=== PATIENT | male | born 1950 | race Caucasian/White ===

== ENCOUNTER 2024-10-26 07:23 | Outpatient (CLI) | payer MEDICARE, SELFPAY ==
--- OUTSIDE RECORDS SUMMARY | 2024-10-26 07:26 | XMS_ITS | Data Portability ---
Author Organization JASIEL [facility] Address [address] [address] [place] [address] Care Team Providers Care Photovoltaic Panel Installer Name Role Phone MEL WEBSTER Primary Care Provider Assessment Encounter Date Assessment Date Assessment LastModified by Organization Details LastModified Time 12/31/2023 12/31/2023 Mr. Rhodes is 5 5 years old. He has an atypical radiculopathy. He develops dense paresthesia and vandana numbness in the feet when he stands for a while and walks. This has affected his gait and he also describes his legs and feet have felt weak and not feeling when he is up.He also has some low back pain. He has a positive EMG study. He has very severe stenosis at L3-4 greater than L2-3. I think this is likely the cause of his symptoms. He would be a candidate for an L2-3 L3-4 posterior lumbar interbody fusion with hardware revision/removal at L4-[address] scan and [employer] neuronavigation. We could try some physical therapy and an epidural injection but is not having Severe radicular pain I do not know how much that conservative treatments we will add. He is going to go home and think about surgery. We tied a long discussion about indications and risks. We talked about infection, adjacent level problem, hardware failure, neural injury. I told him the risk of a catastrophic complication is low but not 0. He understands there is a risk of a medical complication. He understands to be in the hospital for 2-3 nights on average. He would probably get to go home but There is a chance he have to go to rehab. He is going to talk with his and he will let us know how he wants to proceed. I went ahead and had Dina our oral and maxillofacial surgery resident talk with him in the event that he decides to proceed with surgery. jones Not available 12/31/2023 12:25:56 04/14/2024 04/14/2024 Mr. Steward presents today status post L2-L3 and L3-L4 PLIF with Hardware Revision/Removal at L4-L5 03/30. [place] removed with no issues or concerns. All questions answered. [email or web address] Not available 04/14/2024 11:02:10 05/12/2024 05/12/2024 Mr. Rhodes is doing well after undergoing an L2-3 L3-4 posterior lumbar interbody fusion with L4-5 hardware. Back pain and leg weakness and numbness have improved since surgery. He is not having any leg pain. His x-rays look great. He looks great. He is slowly improving with respect to his postop back pain. His incisions healed nicely and is neurologically intact.I reminded him to still take it relatively easy. He should avoid extreme bending lifting or twisting. I would lift anything more than 25 pounds until he comes back and sees me for the last visit in 2 to 3 months with lumbar x-rays. jones Not available 05/12/2024 14:57:38 08/11/2024 08/11/2024 IMAGING: Lumbar x-rays through [facility] on 08/11/2024. I personally reviewed the images with Dr. Flynn and read the radiologist's report. Hardware satisfactorily in place ASSESSMENT: Cm Steward is a 73-year-old status post L4-5 PLIF (Dr. Flynn, 2015) and most recently an L2-L4 PLIF with hardware removal at L4-5 (03/30/2024) who presents to the clinic for second postop appointment. Patient looks great on exam. His incision has healed nicely. We discussed he may now lift up to 30 pounds and increase by 5 pounds each week as tolerated. Since he is doing well we will release him from a neurosurgical standpoint but he knows to call us if any issues arise in the future. PLAN: Call as needed [email or web address] Not available 08/11/2024 09:52:48 Plan of Treatment Reminders Order Date Submit Date Provider Last Modified By Organization Details Last Modified Time Details Appointments RECHECK 2024 01:45P M ITZEL CORDOVA MD Not available Not available Not available Lab None recorded . Referral None recorded . Procedures None recorded . Surgeries None recorded . Imaging None recorded . Medication Orders None recorded . Patient TargetsNo targets recorded. Patient InstructionsNo instructions recorded. Reason for Referral None Reported. Results Created Date Observation Date Name Description Value Unit Range Abnormal Flag Note LastModifiedBy Organization Detail LastModifiedTime 12/16/19 24 12/16/2023 MRI, lumba r spine , w/wo contr ast [facility] [address] [place] [address] Marcos t Name: ED THAO russo : [address] Marcos t Orderi ng Provid er: ROBBIN JONATHANFREYA Anirudh EXAM DATE: 2023 EXAM: MR LUMBAR SPINE W/WO CONTRA ST HISTOR Y: 73-yea r-old male with chroni c low back pain and bilate ral leg numbne ss. The patien t has had prior lumbar surger y. COMPAR TRAVIS: Radiog raph dated 024 and MRI dated 017. The patien t did not requir e sedati on for this exam. A baseli ne serum creati nine with eGFR was obtain ed prior to inject ion of contra st medium due to the patien ts risk factor s for FERMIN. Calcul ated eGFR at time of exam was GFR 69 FINDIN GS: There is prior discec mark, interb reena graft, yola ctomy and a r specialist ior fusion L4-L5. There is solid osseou s fusion at this level. There is dextro curvat ure of the lower lumbar spine and levocu rvatur e at the thorac olumba r juncti on. There is mild anteri or listhe sis of L4 on L5 and mild a r specialist ior listhe sis of L2 on L3. There is no fractu re. There is mild anteri or margin al osteop hytic spurri ng. No pathol ogic lesion is identi fied in the lumbar spine. There are type II Modic change s at L3-L4. The conus medull radha is normal in appear ance at the L1-L2 level. T11-T1 2 and T12-L1 : These interv ertebr al discs are normal in appear ance. L1-L2: There is mild facet arthro adria, mild endpla te spurri ng and a minima l disc bulge. There is no centra l canal stenos is. There is no neural forami nal stenos is. L2-L3: There is a broad- based disc protru palma and endpla te spurri ng extend ing into the neural forami na, modera te facet arthro adria, ligame ntum flavum hypert rophy and promin ence of the epidur al fat. There is modera te centra l canal stenos is. There is mild/m oderat e left and mild right neural forami nal stenos is. L3-L4: There is a broad- based disc protru palma extend ing into the left neural forame n, modera te endpla te spurri ng, and severe facet arthro adria, ligame ntum flavum hypert rophy and promin ence of the epidur al fat. There is severe centra l canal stenos is. There is severe left and modera te right neural forami nal stenos is. L4-L5: There is prior fusion with residu al endpla te spurri ng and facet arthro adria. There is no centra l canal stenos is. There is modera te/sev ere right and mild left neural forami nal stenos is. L5-S1: There is a broad- based disc protru palma, endpla te spurri ng and modera te facet arthro adria. There is no centra l canal stenos is. There is mild bilate ral neural forami nal stenos is. After intrav enous admini strati on of [address] ([facility] [id number] 2), there is no abnorm al enhanc ement in the lumbar spine. There is mild diffus e atroph y of the parasp inous muscul ature. IMPRES PALMA: 1. There is severe centra l canal stenos is with severe left and modera te right neural forami nal narrow ing at L3-L4. This is more severe than in the prior MRI. 2. There is modera te centra l canal narrow ing and mild to modera te neural forami nal narrow ing at L2-L3. 3. There is prior PLIF at L4-L5. There is modera te/sev ere right neural forami nal narrow ing at this level. Interp reted By: Karla de oliveira MD Electr onical ly Signed By: Karla de oliveira MD on 1:08 PM [email or web address] [facility] Radiology [facility] [address] [place], [address], 12/25/2023 17:10:44 12/17/19 24 12/08/2023 nerve condu ction study /EMG, lower extre mity (PROC ) No observ ation record ed. [facility] Edith Jaffe MD [address] [place], [address], 02/08/2024 10:18:20 05/12/20 24 05/12/2024 XR, lumbo sacra l spine , 2 or 3 view [facility] [address] [place] [address] Marcos russo Name: ED HTAO russo : [address] Marcos russo Orderi ng Provid er: MELY FLYNN EXAM DATE: 2023 EXAM: XR LUMBAR AP/LAT CLINIC AL INFORM ATION: Follow -up of recent multil evel fusion . IMAGES PROVID ED: AP, latera l and coned down views of the lumbar spine. COMPAR TRAVIS: Lumbar spine FINDIN GS AND IMPRES PALMA: The marcos t has had previo us anteri or and a r specialist ior fusion at L4-5 with subseq uent remova l of most of the a r specialist ior hardwa re since the study of . There is now multil evel anteri or and a r specialist ior fusion extend ing from L2 to L4 with interb reena cages and a r specialist ior plates and screws and the alignm ent appear s satisf actory . There has also been yola ctomy at L3. There are mild degene rative change s at the inferi or aspect of both sacroi liac joints unchan ged. Interp reted By: Gita mcgee MD Electr onical ly Signed By: Gita mcgee MD on 2023 1:[address], [address], 06/30/2024 20:26:01 08/12/19 25 08/11/2024 XR, lumbo sacra l spine , 2 or [address] [address] [phone] Patishalom russo Name: ED THAO russo : [address] Marcos russo Orderi ng Provid er: MELY FLYNN EXAM DATE: 2024 EXAM: XR LUMBAR AP/LAT CLINIC AL INFORM ATION: Back pain. IMAGES PROVID ED: AP, latera l and coned down views of the lumbar spine. COMPAR TRAVIS: 2023 FINDIN GS: Previo us fusion proced ure L2-L5. [employer] Superintendent ior rods are presen t L2-L4. Only a right pedicl e screw is presen t involv ing L5. No radiog raphic eviden ce of injury is noted. Interv al. No interv al compli cation . No loosen ing. IMPRES PALMA: Previo us lumbar spine fusion as descri bed. Stable Interp reted By: Christoph Camarillo MD Electr onical ly Signed By: Christoph Camarillo MD on 025 8:[address], [address], 09/29/2024 20:54:00 Result Notes None recorded. Procedures Surgical History Date Name Laterality Status Provider Name and Address Organization Details Recorded Time 12/08/19 24 Electromyography (EMG) with Nerve Conduction Study (NCV) completed Aminta Helton (Nicky) [facility] 12/08/2023 15:44:25 03/12/20 20 EXTRA CORPOREAL SHOCKWAVE LITHOTRIPSY (SURG) completed Lonnie Perry [facility] 03/12/2020 12:17:24 03/12/20 20 CYSTOSCOPY, WITH URETEROSCOPY, WITH LITHOTRIPSY, WITH INSERTION OF URETERAL STENT (SURG) completed Lonnie Perry [facility] 03/12/2020 16:33:42 03/12/20 20 EXTRA CORPOREAL SHOCKWAVE LITHOTRIPSY (SURG) completed Lonnie Perry [facility] 03/19/2020 09:10:18 08/07/19 19 EXTRA CORPOREAL SHOCK WAVE LITHOTRIPSY (SURG) completed Yanely Hien [facility] 08/12/2018 08:40:13 11/05/19 17 Electromyography (EMG) with Nerve Conduction Study (NCV) completed Aminta (Kuldip Helton [facility] 11/04/2016 15:06:59 06/21/19 15 Back Surgery completed Kristin Carlos [facility] 09/25/2016 14:10:01 08/26/19 14 Other completed Kristin Carlos [facility] 09/25/2016 14:10:49 06/01/18 70 Other completed Kristin Carlos [facility] 09/25/2016 14:11:21 Cholecystectomy completed Kristin Carlos [facility] 09/25/2016 14:10:18 Imaging Results None recorded. Procedure Notes None recorded. Medical Equipment None Reported. Allergies No known drug allergies Medications Name Sig Start Date Stop Date Status Note LastModified by Organization Details LastModified Time Flomax 0.4 mg capsule Daily active Duration : 30 days;Timothy quency: daily;Me dication Descript ion: tamsulos in; Dosage:1 ; Route:or al; refills: 0; Quantity :30 capsule Not Available Not Available Not Available Percocet 7.5 mg-325 mg tablet Take 1 tablet every 6 hours by oral route as needed. 2023 active Not Available Not Available Not Avai lable tizanidin e 4 mg tablet Take 1 tablet every 8 hours by oral route as needed. 2016 active Not Available Not Available Not Avai lable Medrol (Joni) 4 mg tablets in a dose pack Take 1 package by oral route. 07/22 completed Not Available Not Available Not Available Huma-C tablet Daily active Frequenc y: daily;Me dication Descript ion: ascorbic acid; Route:or al; refills: 0 Not Available Not Available Not Available Percocet 5 mg-325 mg tablet Take 1 tablet every 8 hours by oral route as needed. 2023 active Not Available Not Available Not Avai lable Celexa 40 mg tablet Daily active Frequenc y: daily;Me dication Descript ion: citalopr am; Dosage:1 ; Route:or al; refills: 0 Not Available Not Available Not Available finasteri de 5 mg tablet Take 1 tablet every day by oral route for 90 days. 2023 active Not Available Not Available Not Avai lable naproxen 500 mg tablet Two times a day active Frequenc y: bid;Medi cation Descript ion: naproxen ; Dosage:1 ; Route:or al; refills: 0 Not Available Not Available Not Available alfuzosin ER 10 mg tablet,ex tended release 24 hr Take 1 tablet every day by oral route for 90 days. 2023 active Not Available Not Available Not Avai lable Vytorin 10 mg-20 mg tablet Daily active Frequenc y: daily;Me dication Descript ion: ezetimib e-simvas tatin; Route:or al; refills: 0 Not Available Not Available Not Available gabapenti n 300 mg tablet Two times a day active Frequenc y: bid;Medi cation Descript ion: gabapent in; Route:or al; refills: 0 Not Available Not Available Not Available Tricor 145 mg tablet Daily active Frequenc y: daily;Me dication Descript ion: fenofibr ate; Dosage:1 ; Route:or al; refills: 0 Not Available Not Available Not Available Fish Oil Two times a day active Frequenc y: bid;Medi cation Descript ion: omega-3 polyunsa turated fatty acids; Route:or al; refills: 0 Not Available Not Available Not Available Vitamin D active Medicati on Descript ion: ergocalc iferol; Route:or al; refills: 0 Not Available Not Available Not Available Nuvigil 150 mg tablet Daily active Frequenc y: daily;Me dication Descript ion: armodafi nil; Route:or al; refills: 0 Not Available Not Available Not Available Vitals Date Recorded Body height Body mass index (BMI) Body weight Systolic blood pressure Diastolic blood pressure Provider Name and Address Organization Details Last Updated DateTime 08/11/2024 170.18 cm 42 kg/m2 842466. 76 g 122 mm[Hg] 74 mm[Hg] [facility] 5 09:21:22 Date Recorded Body height Body mass index (BMI) Body weight Systolic blood pressure Diastolic blood pressure Provider Name and Address Organization Details Last Updated DateTime 12/31/2023 170.18 cm 42 kg/m2 692845. 76 g 131 mm[Hg] 84 mm[Hg] [facility] 4 09:42:20 Date Recorded Body height Body mass index (BMI) Body weight Systolic blood pressure Diastolic blood pressure Provider Name and Address Organization Details Last Updated DateTime 05/12/2024 170.18 cm 42 kg/m2 699152. 76 g 124 mm[Hg] 78 mm[Hg] [facility] 4 14:41:47 Social History Question Answer Notes LastModified by Organizat ion Details LastModified Time Tobacco Smoking Status Former Smoker Kavitha Pratibha [facility] 03/03/2024 13:29:40 How Much Tobacco Do You Chew? None Information not available 11/18/2018 When Did You Quit Smoking? 1-5yearssinc elastcigaret te Information not available 03/03/2024 Marital Status buddy Informatio n not available 07/22/2018 What Was The Date Of Your Most Recent Tobacco Screening? 11/12/2023 Information not available 11/12/2023 How Much Tobacco Do You Smoke? No Information not available 03/03/2024 Has Tobacco Cessation Counseling Been Provided? Yes Information not available 11/18/2018 On What Date Was Tobacco Cessation Counseling Provided? 11/18/2018 Information not available 11/18/2018 How Many Years Have You Smoked Tobacco? 53 Information not available 03/03/2024 Sex: Unknown Functional Status None recorded. Mental Status None recorded. Family History Relationship Description Onset Age of this Age Resolved Age Notes LastModified by Organization Details LastModified Time Unspecified Relation Alcoholism apurdie Not available 2016 14:05:46 Unspecified Relation Blood coagulation disorder apurdie Not available 2016 14:05:59 Unspecified Relation Heart disease apurdie Not available 2016 14:06:09 Unspecified Relation Arthritis apurdie Not available 017 14:06:17 Unspecified Relation Hypertensive disorder apurdie Not available 2016 14:07:04 Unspecified Relation Osteoporosis apurdie Not available 08/31 14:07:16 Unspecified Relation Kidney disease apurdie Not available 2016 14:07:28 Medical History Condition Response Other Arthritis Y Sleep Apnea Y High Cholesterol Y Past Encounters Encounter ID Performer Location Encounter Start Date Encounter Closed Date Diagnosis/Indication Diagnosis SNOMED-CT Code Diagnosis ICD10 Code Diagnosis Note [id number] JOSE MARTINEZ PA-C [facility] [address] [place] [address] 09/25/2016 13:17:10 09/30/2016 14:13:30 Lumbar radiculopathy 737378183 M54.16 [id number] PATRICIA FLANNERY MD NEUROLOGY [facility] [address] [place] [address] 11/04/2016 13:43:11 11/04/2016 16:54:09 Lumbar radiculopathy 790037604 M54.16 [id number] MELY FLYNN MD NEUROSURG [facility] [address] [place] [address] 11/04/2016 15:29:53 11/04/2016 16:26:02 Lumbar spondylosis 904265744 M47.741 [id number] ITZEL CORDOVA MD [facility] [address] [address] 07/22/2018 15:35:02 08/02/2018 09:50:00 Urinary bladder stone 19868837 N21.0 Kidney stone 09466439 N2 0.0 [id number] ITZEL CORDOVA MD [facility] [address] [address] 08/12/2018 13:32:56 08/23/2018 09:25:17 Urolithiasis 16063324 N20.9 [id number] ITZEL CORDOVA MD [facility] [address] [place] [address] 8 11/18/2018 14:51:52 11/19/2018 10:17:09 Kidney stone 57286867 N20.0 [id number] ITZEL CORDOVA MD [facility] [address] [place] [address] 8 05/05/2019 14:56:07 05/31/2019 10:36:40 Kidney stone 09005114 N20.0 [id number] ITZEL CORDOVA MD [facility] [address] [place] [address] 8 02/02/2020 14:19:23 02/07/2020 09:36:50 Kidney stone 27952554 N20.0 [id number] ITZEL CORDOVA MD [facility] [address] [facility] [facility] [place], [place] [address] 03/19/2020 15:26:10 03/19/2020 17:10:44 Kidney stone 87584593 N20.0 [id number] ITZEL CORDOVA MD [facility] [address] [place] [address] 8 06/28/2020 14:40:43 06/29/2020 15:11:47 Benign prostatic hyperplasia with outflow obstruction 577057804 N40.1 Kidney stone 19933852 N2 0.0 [id number] ITZEL CORDOVA MD [facility] [address] [place] [address] 8 10/04/2020 14:32:02 10/10/2020 13:50:43 Benign prostatic hyperplasia with outflow obstruction 359875956 N40.1 Urgent sridevi adam to urinate 41519754 R39.15 Kidney stone 80025726 N2 0.0 [id number] ITZEL CORDOVA MD [facility] [address] [place] [address] 8 10/30/2022 13:37:12 11/01/2022 04:09:28 Benign prostatic hyperplasia with outflow obstruction 862499464 N40.1 Urgent sridevi adam to urinate 52835025 R39.15 Kidney stone 76106336 N2 0.0 History of calculus of kidney 294812713 Z87.442 [id number] ITZEL CORDOVA MD [facility] [address] [address] 11/12/2023 15:25:40 11/12/2023 17:48:55 Benign prostatic hyperplasia with outflow obstruction 355869806 N40.1 Kidney stone 58605767 N2 0.0 [id number] ROBBIN UBLLARD APRN NEUROSURG [facility] [address] [place] [address] 0 11/17/2023 09:26:10 11/18/2023 04:21:32 Lumbar radiculopathy 412327618 M54.16 Lumbar spondylosis 57587 0009 M47.896 History of lumbar fusion 6966488757 9106 Z98.1 [id number] [place] [address] [place] [address] 1 12/08/2023 14:01:32 2023 13:04:36 Lumbar radiculopathy 251103059 M54.16 Paresthesia 57908275 R20 .2 Skin sensa tion disturbance 37370735 R20.9 [id number] MELY FLYNN MD NEUROSURG [facility] [address] [place] [address] 0 12/31/2023 09:19:04 01/01/2024 04:13:01 Spinal stenosis of lumbar region 88159796 M48.062 [id number] MELY FLYNN MD SURGERY SCHEDULE [address] [place] [address] 1 03/31/2024 13:39:16 04/07/2024 14:37:46 [id number] MELY FLYNN [facility] [address] [place] [address] 0 04/14/2024 09:36:45 04/16/2024 04:41:46 [id number] MELY FLYNN MD NEUROSURG [facility] [address] [place] [address] 0 05/12/2024 14:07:16 05/13/2024 04:25:30 Spinal stenosis of lumbar region 89811462 M48.062 [id number] NIDHI LEROY PA-C [facility] [address] [place] [address] 08/11/2024 09:12:18 08/16/2024 14:21:50 Health Concerns Section Related Observation LastModified by Organization Detai ls LastModified Time None Recorded Concern Status LastModified by Organization Details LastModified Time None Recorded Advance Directives Directive None Recorded Payers Insurance Date Sequence Insurance Name Policy Number Policy Hussein Covered Member ID Hussein Member ID Guarantor Name 08/16/2024 1 [employer] (MEDICARE REPLACEMENT/A DVANTAGE - PPO) Ed Thao [id number] Ed Thao Notes Date Note Type Note Provider Name and Address Organization Details Recorded Time 4 text/html I saw Mr. Rhodes. In June 2014 I performed an L4-5 posterior lumbar interbody fusion for spondylolisthesis and stenosis. He did very well. He was seen by nurse Jose Rafael on November 17, 2023. He has been getting dense paresthesias and numbness in the feet when he stands and walks. He gets relief after a minute or so when he Sits down. He has some low back pain in the low lumbar area when he switches from sitting to standing. Dr. Jaffe recently performed an EMG study that showed L5 plus S1 radiculopathies and possibly chronic left L3 or L4 radiculopathy. He had no neuropathy.Symptoms have progressed to the point where he is having trouble walking because he cannot feel his feet when he is walking and starts to develop symptoms. He also feels like his legs are weak.Nurse pooja upton ordered flexion-extension x-rays a lumbar MRI scan and an EMG study. MELY FLYNN MD [facility] [place], [address], [facility] 12/31/2023 12:26:43 4 text/html Follow-up status post L2-3 L3-4 posterior lumbar interbody fusion with hardware removal at L4-5 on March 30, 2024. I performed the L4-5 fusion back in 2014. Back pain but a lot of leg weakness and numbness prior to surgery. He states that since surgery has not really had any left lower extremity pain at all. Numbness in the feet is also improved. He feels like his legs are little stronger. He has some back soreness which is not too bad. It slowly getting better. He reports no room problems. He overall feels like surgery helped quite a bit and is happy with how he is doing MELY FLYNN MD [address] [place], [address], [facility] 05/12/2024 14:58:09 text/html Cm Steward is a 73-year-old status post L4-5 PLIF (Dr. Flynn, 2015) and most recently an L2-L4 PLIF with hardware removal at L4-5 (03/30/2024) who presents to the clinic for second postop appointment, with lumbar x-rays through [facility] on 08/11/2024. Patient states his left lower extremity pain has entirely resolved since surgery. He reports lower back stiffness in the morning that resolves once he starts moving. He has no concerns for today's visit. He is overall happy that he had the procedure. PA and physician visit. NIDHI LEROY PA-C [address] [place], [address], [facility] 08/11/2024 09:53:08
--- OUTSIDE RECORDS SUMMARY | 2024-10-26 07:26 | XMS_ITS | Data Portability ---
Author Organization [facility] Juan [facility] JANICE Isabel ADMIN Address [address] [place] [id number] Care Team Providers Care Skin Care Instructor Name Role Phone DARIN JUAN PABLO Primary Care Provider Assessment No assessment recorded. Plan of Treatment Reminders Order Date Submit Date Provider Last Modified By Organization Details Last Modified Time Details Appointments None recorded. Lab None recorded. Referral None recorded. Procedures None recorded. Surgeries None recorded. Imaging LDCT, chest, for lung cancer screening - 1- Did patient participate in a shared decision-wilver tovar session with the provider? YES2- Is patient age between 50-77 years old? YES3- Did patient smoke at least 20 pack year? YES4- Is patient current smoker or quit smoking within the last 15 years? YES5- Is the patient asymptomati c (no signs or symptoms of lung cancer)? YES 2022 024 [email or web address] [facility] (Scheduling[facility] [address] [place], [address], 4 14:53:09 LDCT, chest, for lung cancer screening - 1- Did patient participate in a shared decision-wilver tovar session with the provider? YES2- Is patient age between 50-77 years old? YES3- Did patient smoke at least 20 pack year? YES4- Is patient current smoker or quit smoking within the last 15 years? YES5- Is the patient asymptomati c (no signs or symptoms of lung cancer)? YES 2022 023 [email or web address] [facility] ([facility]), [address] [place], [address], 3 13:46:02 PFT, plethysmogr aphy 2022 023 [facility] (Scheduling), [address] [place], [address], 3 17:36:52 Medication Orders Ventolin HFA 90 mcg/actuati on aerosol inhaler 2022 023 [facility], [address] [place] [address], [address], 3 11:39:09 Stiolto Respimat 2.5 mcg-2.5 mcg/actuati on solution for inhalation 2022 023 [facility], [address] [place], [address], 3 11:39:11 Patient TargetsNo targets recorded. Patient InstructionsNo instructions recorded. Reason for Referral None Reported. Results Created Date Observation Date Name Description Value Unit Range Abnormal Flag Note LastModifiedBy Organization Detail LastModifiedTime 10/18/1910/14/2022 PFT, pleth ysmog radha No observ ation record ed. [facility] (Scheduling) [address] [place], [address], 10/20/2022 10:30:51 Result Notes None recorded. Problems Name Problem SNOMED Code Status Onset Date Resolution Date Notes Provider Name and Address Organization Details Recorded Time Chronic obstructive pulmonary disease 21493961 Active [address], [place], [address] , [facility] & [place] 3 11:35:51 Dyspnea on exertion 63365638 Active [address], [place], [address] , [facility] & [place] 3 11:36:14 Nicotine dependence in remission 290746972 Active [address], [place], [address] , [facility] [place] & [place] 3 11:36:22 Tobacco dependence in remission 414467685 Active 2022 Dilcia Romano MD [address], [place], [address] , [facility] & [place] 3 11:41:31 Obstructive sleep apnea syndrome 75551124 Active 2022 Dilcia Romano MD [address], [place], [address] , [facility] & [place] 3 11:46:11 Problem Notes None recorded. Procedures Surgical History Date Name Laterality Status Provider Name and Address Organization Details Recorded Time 06/01/19 21 Joint Replacement completed Andrew Lerma [facility] & [place] 12/09/2022 10:58:22 06/01/19 18 Back Surgery completed Andrew Lerma [facility] & [place] 12/09/2022 10:58:22 06/01/19 15 operative procedure on spinal structure completed Rashad Wing [facility] & [place] 10/07/2022 10:51:36 06/01/19 00 LASIK completed Andrew Gabarrett [facility] & [place] 12/09/2022 10:58:22 total knee replacement completed Rashad Morales [facility] & [place] 10/07/2022 10:51:16 Other completed Andrew Lerma [facility] & [place] 12/09/2022 10:58:22 Imaging Results None recorded. Procedure Notes None recorded. Medical Equipment None Reported. Allergies No known drug allergies Medications Name Sig Start Date Stop Date Status Note LastModified by Organization Details LastModified Time atorvastatin 20 mg tablet TAKE 1 TABLET BY MOUTH ONCE DAILY FOR CHOLESTEROL active Not Available Not Available Not Available citalopram 40 mg tablet TAKE 1 TABLET BY MOUTH ONCE DAILY IN THE MORNING active Not Available Not Available Not Available omeprazole 20 mg capsule,carolyn yed release TAKE 1 CAPSULE BY MOUTH ONCE DAILY active Not Available Not Available No t Available atropine 1 % eye drops active Not Available Not Available No t Available finasteride 5 mg tablet TAKE 1 TABLET BY MOUTH ONCE DAILY FOR 90 DAYS active Not Available Not Available No t Available Ventolin HFA 90 mcg/actuatio n aerosol inhaler INHALE 2 PUFFS BY MOUTH EVERY 4 HOURS active Not Available Not Available No t Available alfuzosin ER 10 mg tablet,exten ded release 24 hr TAKE 1 TABLET BY MOUTH ONCE DAILY FOR 90 DAYS active Not Available Not Available No t Available fenofibrate 160 mg tablet TAKE 1 TABLET BY MOUTH ONCE DAILY active Not Available Not Available No t Available pregabalin 200 mg capsule TAKE 1 CAPSULE BY MOUTH TWICE DAILY active Not Available Not Available No t Available Stiolto Respimat 2.5 mcg-2.5 mcg/actuatio n solution for inhalation INHALE 2 PUFFS BY MOUTH ONCE DAILY active Not Available Not Available No t Available Trelegy Ellipta 100 mcg-62.5 mcg-25 mcg powder for inhalation Inhale 1 puff by mouth once daily active Not Available Not Available No t Available Vitals Date Recorded Body weight Body mass index (BMI) Body height Body temperature Oxygen saturation Oxygen saturation in Arterial blood by Pulse oximetry Respiratory rate Heart rate Systolic blood pressure Diastolic blood pressure Provider Name and Address Organization Details Last Updated DateTime 3 404721. 01 g 45 kg/m2 170.18 cm 98.4 [degF] 97 % 97 % 18 /min 72 /min 146 mm[Hg] 95 mm[Hg] Rashad CAMACH[facility] & [place] 3 10:53:18 Date Recorded Body height Body mass index (BMI) Body weight Body temperature Oxygen saturation Oxygen saturation in Arterial blood by Pulse oximetry Heart rate Systolic blood pressure Diastolic blood pressure Provider Name and Address Organization Details Last Updated DateTime 3 170.18 cm 45 kg/m2 375953. 81 g 98.2 [degF] 96 % 96 % 71 /min 149 mm[Hg] 86 mm[Hg] Andrew CAMACH[facility] & [place] 3 10:58:00 Social History Question Answer Notes LastModified by Organizat ion Details LastModified Time Tobacco Smoking Status Former Smoker Rashad [facility] Hager [facility] & [place] 10/07/2022 10:51:01 What Is Your Level Of Caffeine Consumption? Occasional [email or web address] Information not available 12/09/2022 When Did You Quit Smoking? 1-5yearskya del castillo [email or web address] Information not available 12/09/2022 What Was The Date Of Your Most Recent Tobacco Screening? 12/09/2022 [email or web address] Information not available 12/09/2022 What Is Your Current Pack Years? 20-29packyears [email or web address] Information not available 12/09/2022 At What Age Did You Start Smoking Tobacco? 18 [email or web address] Information not available 12/09/2022 Sex: Unknown Functional Status Question Answer Note LastModified by Organizat ion Details LastModified Time Do you use any illicit or recreational drugs? No Information not available 10/07/2022 What is your level of alcohol consumption? None Information not available 10/07/2022 Mental Status None recorded. Family History Relationship Description Onset Age of this Age Resolved Age Notes LastModified by Organization Details LastModified Time Father Hypertensive disorder [email or web address] Not available 2022 10:49:56 Father Chronic obstructive pulmonary disease [email or web address] Not available 2022 10:50:02 Mother Hypertensive disorder [email or web address] Not available 2022 10:49:56 Medical History Condition Response Obesity Y Arthritis Y Ear or Hearing Problems Y Spine Problems Y Back Problems Y Obstructive Sleep Apnea Y COPD Y Past Encounters Encounter ID Performer Location Encounter Start Date Encounter Closed Date Diagnosis/Indication Diagnosis SNOMED-CT Code Diagnosis ICD10 Code Diagnosis Note [id number] Dilcia Romano MD [facility] [address] [facility] [place] [address] 10/07/2022 10:40:13 10/07/2022 11:27:02 Chronic obstructive pulmonary disease 67655185 J44.9 Images and report of chest x-ray done recently were reviewed and discussed with the patient, there is no evidence of acute finding. Spirometry done in the office today showed poor effort with evidence of obstructio n and decrease in FEV1 down to 48% predicted and that was reviewed and discussed with the patient. Given patient's symptoms and spirometry abnormalit y then will check full PFTs with DLCO. Will check alpha-1 trypsin genotype by buccal mucosal swab in the office today. Will start patient on a controller inhaler using Stiolto. Patient instructed to call if there is any new symptoms. Dyspnea on exertion 6084 5006 R06.09 Patient recommende d to exercise as tolerated and use his Yoana on a p.r.n. basis. Screening for malignant neoplasm of respiratory tract 010736858 Z12.2 The patient has participat ed in a shared decision making session during which potential risk and benefits of LDCT lung cancer screening were discussed. The patient was informed of the importance of adherence to annual screening, impact of comorbidit ies, the ability/wi llingness to undergo diagnosis and treatment. The patient was informed of the importance of smoking cessation and/or maintainin g smoking abstinence , including the offer of Medicare-c over tobacco cessation counseling services, if applicable . The patient is asymptomat ic (no symptoms such as fever, chest pain, new shortness of breath, new or changing cough, coughing up blood, or unexplaine d significan t weight loss). Tobacco de pendence in remission 287471096 F17.211 Patient quit smoking about a year and a half ago and will continue follow this up.The patient has participat ed in a shared decision making session during which potential risk and benefits of LDCT lung cancer screening were discussed. The patient was informed of the importance of adherence to annual screening, impact of comorbidit ies, the ability/wi llingness to undergo diagnosis and treatment. The patient was informed of the importance of smoking cessation and/or maintainin g smoking abstinence , including the offer of Medicare-c over tobacco cessation counseling services, if applicable .The patient is asymptomat ic (no symptoms such as fever, chest pain, new shortness of breath, new or changing cough, coughing up blood, or unexplaine d significan t weight loss). [id number] Dilcia Romano MD [facility] [address] [facility] [place] [address] 12/09/2022 10:51:32 12/09/2022 11:11:32 Chronic obstructive pulmonary disease 72006327 J44.9 PFT with DLCO done recently results were reviewed and discussed with the patient, there is restrictiv e effect due to patient body habitus with decrease in FEV1 down to 93% predicted. Patient instructed to continue with the use of Stiolto regularly and will consider deescalati ng treatment if there is any side effects or improvemen t in his condition by next visit.Amanda ent instructed to call if there is any new symptoms. Dyspnea on exertion 6084 5006 R06.09 Patient recommende d to exercise as tolerated and use his Yoana on a p.r.n. basis. Screening for malignant neoplasm of respiratory tract 072235104 Z12.2 Images and report of low-dose CT of the chest done recently at [facility] were reviewed and discussed with the patient, there is no evidence of malignancy and will continue with annual testing. The patient has participat ed in a shared decision making session during which potential risk and benefits of LDCT lung cancer screening were discussed. The patient was informed of the importance of adherence to annual screening, impact of comorbidit ies, the ability/wi llingness to undergo diagnosis and treatment. The patient was informed of the importance of smoking cessation and/or maintainin g smoking abstinence , including the offer of Medicare-c over tobacco cessation counseling services, if applicable .The patient is asymptomat ic (no symptoms such as fever, chest pain, new shortness of breath, new or changing cough, coughing up blood, or unexplaine d significan t weight loss). Tobacco de pendence in remission 408420668 F17.211 Patient remains without smoking and will continue follow this up. Obstructiv e sleep apnea syndrome 01313308 G47.33 Patient instructed to continue with the use of his CPAP regularly and to comply with the cleaning instructio ns and supply changes. Health Concerns Section Related Observation LastModified by Organization Detai ls LastModified Time None Recorded Concern Status LastModified by Organization Details LastModified Time None Recorded Advance Directives Directive None Recorded Payers Insurance Date Sequence Insurance Name Policy Number Policy Hussein Covered Member ID Hussein Member ID Guarantor Name 12/19/2023 1 [employer] (MEDICARE REPLACEMENT/A DVANTAGE - PPO) Cm Steward [id number] Cm Steward Notes Date Note Type Note Provider Name and Address Organization Details Recorded Time 10/07/2022 text/html Patient presents to the office today for initial evaluation. Patient states that over the last couple years he noticed worsening dyspnea on exertion despite having bilateral knee pain that is limiting his activity. He denies significant shortness breath at rest. He denies fever, chills or diaphoresis. No chest pain, angina or palpitation. No PND or orthopnea. Patient denies wheezing or hemoptysis. Patient states that he had history of smoking more than 1 pack per day for more than 50 years and quit about a year and half ago. Patient denies significant change in his appetite but had increase in his weight about 30 lb last couple years. Dilcia Romano MD [address], [place], [address], [facility] & [place] 10/07/2022 11:43:28 12/09/2022 text/html Patient presents to the office today for follow-up visit. Patient states that he is doing fairly well with good control of his shortness of breath at rest and dyspnea on exertion. He is trying to exercise regularly. Using his Stiolto daily and did not had to use his Yoana for few weeks. He denies fever, chills or diaphoresis. No chest pain, angina or palpitation. No PND or orthopnea. Patient denies wheezing or hemoptysis. Patient denies significant change in his weight or appetite. Dilcia Romano MD [address], [place], [address], [facility] & [place] 12/09/2022 11:46:50
--- NOTE | 2024-10-26 07:30 | CT_ITS ---
FINAL REPORT TECHNIQUE: Axial CT images of the chest were obtained without contrast. Coronal and sagittal reformatted images were obtained and reviewed. Low-dose protocol was utilized. This study was performed with techniques to keep radiation doses as low as reasonably achievable (ALARA). Individualized dose reduction techniques using automated exposure control or adjustment of mA and/or kV according to the patient's size were employed. CLINICAL HISTORY: Lung cancer screening Former smoker quit 4 years ago, 1ppd x50 years. COPD COMPARISON: None FINDINGS: CT CHEST WITHOUT, LOW DOSE SCREENING CTDl vol(mGy): 2.90 DLP (mGy-cm): 111.77 There is no axillary adenopathy. There is no mediastinal adenopathy. There is a calcified left hilar lymph node. The heart size is normal. There is no pericardial or pleural effusion. Lung window images demonstrate calcified granuloma in the left lower lobe. Linear scarring is identified at the medial right lung base. There are mild changes of centrilobular emphysema in both upper lobes. There is a pleural-based nodule in the periphery of the left lung base. This measures 5 mm and is seen on image 39 of series 604. Limited images of the upper abdomen are unremarkable. IMPRESSION: Lung RADS category 2. Recommend 12 month follow-up low-dose chest CT per Fleischner criteria. Reviewed, Interpreted and Dictated by Barrett Stewart MD Transcribed by Shantell Charles Authenticated and . [facility]
[2024-10-26 08:30] VITALS: PULSE 74; PULSE 77
[2024-10-26] MEDS: ALBUTEROL 0.083% 2.5 MG/3 ML NEB IH (08:30)
== END 2024-10-26 23:59 | disposition home or self-care (01) ==
LOC: RAD 07:25
PROVIDERS: PCP Family Medicine; Visit Provider Internal Medicine Pulmonary Disease
DX: R91.8 Other nonspecific abnormal finding of lung field (principal); F17.210 Nicotine dependence, cigarettes, uncomplicated; J44.9 Chronic obstructive pulmonary disease, unspecified; Z12.2 Encounter for screening for malignant neoplasm of respiratory organs
CPT/HCPCS: 71271; 94060; 94618; 94640; 94726; 94729